=== PATIENT | female | born 1985 | race Hispanic/Latino ===

== ENCOUNTER 2024-01-07 12:05 | Inpatient (IN) | payer OTHER ==
[~2024-01-07] VITALS: Ht 154.9 cm; Wt 72.1 kg
[2024-01-07] MEDS ORDERED: LACTATED RINGERS 1000ML IV PRN (13:30)
[2024-01-07 13:39] LABS: APPEARANCE,URINE CLEAR (CLEAR); BILIRUBIN,URINE NEGATIVE (NEGATIVE); COLOR,URINE YELLOW (YELLOW); GLUCOSE, URINE (UA) NEGATIVE (NEGATIVE); KETONES,URINE 40 mg/dL (NEGATIVE); LEUKOCYTE ESTERASE ,URINE NEGATIVE Leu/uL (NEGATIVE); NITRATE,URINE POSITIVE (NEGATIVE); OCCULT BLOOD,URINE TRACE-INTACT (NEGATIVE); PROTEIN,URINE NEGATIVE (NEGATIVE); UROBILINOGEN,URINE 0.2 mg/dL (0.2-1.0)
[2024-01-07 13:41] LABS: ADD UA MICROSCOPIC YES
[2024-01-07 14:10] LABS: RBC,URINE 0-1 /HPF (0-1)
[2024-01-07 14:11] LABS: BACTERIA,URINE Few /HPF (None Seen)
[2024-01-07] MEDS ORDERED: CITRIC ACID/SODIUM CITRATE 30 ML UDCUP PO PRN (14:30)
[2024-01-07] MEDS ORDERED: CEFAZOLIN SODIUM 2 GM VIAL IVPB PRN (14:30)
[2024-01-07] MEDS ORDERED: LACTATED RINGERS 1000ML 1,000 ML IV SCH (14:30)
[2024-01-07] MEDS ORDERED: TRANEXAMIC ACID 1000MG/10ML ONE (14:37)
[2024-01-07] MEDS ORDERED: MISOPROSTOL 200 MCG TABLET ONE (14:37)
[2024-01-07] MEDS ORDERED: METHYLERGONOVINE MALEATE 0.2 MG/1 ML ML ONE (14:38)
[2024-01-07 14:39] LABS: HEMATOCRIT 33.1 % (36-48); MEAN CORPUSCULAR HEMOGLOBIN 30.2 pg (27.0-33.0); MEAN CORPUSCULAR HGB CONC 34.4 g/dL (32.0-36.0); MEAN CORPUSCULAR VOLUME 87.6 fL (79-99); RED BLOOD CELL COUNT(AUTO) 3.78 MIL/uL (4.00-5.50); RED CELL DISTRIBUTION WIDTH 12.9 % (11.0-15.5); WHITE BLOOD COUNT (AUTO) 7.7 K/uL (4.8-10.8)
[2024-01-07] MEDS ORDERED: MORPHINE PF 100MG/10ML AMP IV ONE (15:09)
[2024-01-07] MEDS ORDERED: EPHEDRINE SULFATE 50 MG/ML AMPULE ONE (15:18)
[2024-01-07] MEDS ORDERED: PHENYLEPHRINE HCL 10 MG/ML 1ML VIAL IV ONE (15:25)
[2024-01-07 15:27] LABS: HIV 1&2 ANTIBODY Non-Reactive (Negative); HIV-1 p24 Antigen Non-Reactive (Negative)
[2024-01-07] MEDS ORDERED: PROMETHAZINE HCL 25 MG/ML 1ML AMPULE IM PRN (16:00)
[2024-01-07] MEDS ORDERED: MEPERIDINE-PF 75 MG/ML SYG IM PRN (16:00)
[2024-01-07] MEDS ORDERED: 0.9%NACL 10ML VIAL IVP PRN (16:00)
[2024-01-07] MEDS ORDERED: DEXTROSE 5 %-0.45 % NACL 1,000 ML IV PRN (16:00)
[2024-01-07] MEDS: CALDOLOR 800MG+NS 250ML 250 ML IV PRN (16:24)
[2024-01-07 19:10] VITALS: BP 131/78; PULSE 82; RESP 20
[2024-01-07] MEDS: OXYTOCIN-LR 30 UNITS/500ML 500 ML IV PRN (20:31)
[2024-01-07] MEDS: METOCLOPRAMIDE 10 MG/2 ML VIAL IVP PRN (20:32)
[2024-01-07] MEDS: CEFAZOLIN SODIUM 1 GM VIAL IVPB SCH (23:20)
[2024-01-07] MEDS: CALDOLOR 800MG+NS 250ML 250 ML IV SCH (23:34)
[2024-01-08] VITALS: BP 121/77; PULSE 83; RESP 20
[2024-01-08 03:56] VITALS: BP 106/65; PULSE 80; RESP 20
[2024-01-08] MEDS ORDERED: LANOLIN 30GM OINTMENT TP PRN (04:00)
[2024-01-08] MEDS ORDERED: ACETAMINOPHEN 500 MG TABLET PO PRN (04:00)
[2024-01-08] MEDS ORDERED: BISACODYL 10 MG SUPP.RECT RC PRN (04:00)
[2024-01-08 07:05] LABS: HEMATOCRIT 28.8 % (36-48); MEAN CORPUSCULAR HEMOGLOBIN 30.2 pg (27.0-33.0); MEAN CORPUSCULAR HGB CONC 34.7 g/dL (32.0-36.0); RED BLOOD CELL COUNT(AUTO) 3.31 MIL/uL (4.00-5.50); RED CELL DISTRIBUTION WIDTH 12.8 % (11.0-15.5); WHITE BLOOD COUNT (AUTO) 8.3 K/uL (4.8-10.8)
[2024-01-08 07:45] VITALS: BP 113/67; PULSE 82; RESP 18
[2024-01-08] MEDS: DOCUSATE SODIUM 100 MG CAP PO SCH (10:06)
[2024-01-08 11:33] LABS: RAPID PLASMA REAGIN NONREACTIVE (NONREACTIVE)
[2024-01-08 11:37] VITALS: BP 122/77; PULSE 83
[2024-01-08 15:50] VITALS: BP 114/84; PULSE 97; RESP 18
[2024-01-08] MEDS: IBUPROFEN 600 MG TABLET PO PRN (18:28)
[2024-01-08] MEDS: HYDROCODONE/ACETAMINOPHEN 5/325 MG TAB PO PRN (19:43)
[2024-01-08] MEDS: SIMETHICONE 80 MG TAB.CHEW PO PRN (19:48)
[2024-01-08 20:00] VITALS: BP 112/64; PULSE 99; RESP 20
[2024-01-09] VITALS (8 sets, daily range): BP systolic 109–138; BP diastolic 66–83; PULSE 74–89; RESP 18–20
[2024-01-09] MEDS: ACETAMINOPHEN WITH CODEINE 1 TAB TAB PO PRN (07:28)
[2024-01-10 03:58] VITALS: BP 121/78; PULSE 77; RESP 20
[2024-01-10 07:16] VITALS: BP 102/58; PULSE 72; RESP 18
[2024-01-10] MEDS ORDERED: ACET-2079 PO (11:12)
[2024-01-10] MEDS ORDERED: LANOLIN 30GM OINTMENT TP PRN (11:30)
[2024-01-10] MEDS: MEASLES/MUMPS/RUBELLA VACCINE, LIVE 0.5 ML/VIAL SQ PRN (11:44)
[2024-01-10] MEDS: DIPH,PERTUSS(ACELL),TET VAC/PF 0.5 ML VIAL IM PRN (11:50)
[2024-01-10 12:13] VITALS: BP 104/70; PULSE 81; RESP 20
== END 2024-01-10 13:00 | disposition home or self-care (01) | DRG 785 ==
LOC: EDH 12:05 → LDH 12:06 → OBSVTOIN 12:06 → WSH 18:23
PROVIDERS: ADMIT Obstetrics & Gynecology; ATTEND Obstetrics & Gynecology
PROC: 0UB70ZZ Excision of Bilateral Fallopian Tubes, Open Approach (ICD-10-PCS; 2024-01-07)
PROC: 10D00Z1 Extraction of Products of Conception, Low, Open Approach (ICD-10-PCS; principal; 2024-01-07 15:00)
PROC: 3E0234Z Introduction of Serum, Toxoid and Vaccine into Muscle, Percutaneous Approach (ICD-10-PCS; 2024-01-10)
DX: O34.211 Maternal care for low transverse scar from previous cesarean delivery (principal); Z37.0 Single live birth; Z3A.37 37 weeks gestation of pregnancy; Z30.2 Encounter for sterilization; Z23 Encounter for immunization
CPT/HCPCS: 36415; 36600; 59510; 81001; 82948; 85027; 86592; 86701; 86850; 86900; 86901; 87086; 87340; 87390; 88302; 90707; 90715; A4344; G0378; J0690; J1741; J2210; J2274; J2371; J2765; J3490; J7120; A4248; A4649; L0625